=== PATIENT | female | born 1950 | race Caucasian/White ===

== ENCOUNTER 2020-05-04 08:18 | Day surgery (SDC) | payer MEDICARE, SELFPAY ==
--- NOTE | 2020-05-03 14:19 | P.CONAN_ITS ---
Documented by User: Cassandra De La Torre 05/03/20 14:20 HPI - Anesthesia Eval Consult details Narrative: 69yo F for Upper Endoscopy and Colonoscopy [facility] Past Medical History Medical History Acid reflux Anxiety Depression Migraines Surgical History Surgical History H/O section H/O colonoscopy History of esophagogastroduodenoscopy (EGD) History of esophagogastroduodenoscopy (EGD) Social History Social History Smoking Status: Never smoker Use of substances other than those prescribed or required for medical reasons: No Have you been hit, kicked, punched, or otherwise hurt by someone within the past year? If so, by whom?: No Advance Directives: No Advance Directives Information Provided: No (unknown) Advance Directives on File: No Recently lost weight without trying: No Meds Allergies Allergy/AdvReac Type Severity Reaction Status Date / Time meperidine [From Demerol] Allergy Unknown unknown Verified 05/03/20 14:20 Home Medications Medication Instructions Recorded Confirmed Type Advil 05/04/20 History atenolol 1 tab PO DAILY 05/04/20 05/04/20 History lfwthxmdut-ucxtkqumorirz-smre tab PO 05/04/20 History escitalopram oxalate 1 tab PO DAILY 05/04/20 05/04/20 History Exam Exam Date and Time: May 03, 2020 1419 Assessment and Plan Assessment Anesthesia Assessment: Chart Reviewed Documented by User: Alpa Denson 05/04/20 09:17 [facility] Past Medical History Medical History Acid reflux Anxiety Depression Migraines Family History Family history of problems with anesthesia: No Surgical History Surgical History H/O section H/O colonoscopy History of esophagogastroduodenoscopy (EGD) History of esophagogastroduodenoscopy (EGD) History of Problems with Anesthesia: No Social History Social History Smoking Status: Never smoker Use of substances other than those prescribed or required for medical reasons: No Have you been hit, kicked, punched, or otherwise hurt by someone within the past year? If so, by whom?: No Advance Directives: No Advance Directives Information Provided: No (unknown) Advance Directives on File: No Recently lost weight without trying: No Meds Allergies Allergy/AdvReac Type Severity Reaction Status Date / Time meperidine [From Demerol] Allergy Unknown unknown Verified 05/03/20 14:20 Home Medications Medication Instructions Recorded Confirmed Type Advil 05/04/20 History atenolol 1 tab PO DAILY 05/04/20 05/04/20 History qaidjafaom-kmqcfjotnrbyx-qndf tab PO 05/04/20 History escitalopram oxalate 1 tab PO DAILY 05/04/20 05/04/20 History Exam Height,Weight and Vital Signs: Vital Signs Temp Pulse Resp BP Pulse Ox 05/04/20 08:34 97 F 82 18 150/76 H 97 Airway Mallampati Class: II TM Dist: >3cm Loose/Missing/Broken Teeth: No (Caps intact) Heart: RRR Lungs: CTAB Assessment and Plan Assessment Anesthesia Assessment: Anesthesia Plan Discussed and Chart Reviewed Final Anesthetic Review NPO: Yes ASA Class: II Final Preanesthetic Review: No Changes in Pt Med Stat, Meds/Allgs Chart Reviewed and Consent Obtained/Reviewed Patient Risk: Low Procedure Risk: Low Anesthetic Plan Anesthetic Plan: MAC: Disposition: Standard PACU
[2020-05-04 08:34] VITALS: BP 150/76; PULSE 82; RESP 18; TEMP 36.1; O2SAT 97; BMI 24.7
[2020-05-04] MEDS: Lactated Ringers 1,000 ML 100 ML IVCONT (08:43)
--- NOTE | 2020-05-04 10:04 | MHC.SHP ---
Pre-Procedural Eval Section A The patient is an INPATIENT: No Changes since office visit: No Cold of Flu in the past 2 weeks, No New Medical Problems, No Changes in Medication and No Patient answered all questions The History & Physical has been completed within 30 days and I have reviewed it.: Yes Section B Chief Complaint: reflux,barretts,screening Allergies: Allergies Allergy/AdvReac Type Severity Reaction Status Date / Time meperidine [From Demerol] Allergy Unknown unknown Verified 05/03/20 14:20 Plan Patient has been examined and remains a candidate for the planned procedure
[2020-05-04 10:42] VITALS: BP 121/62; PULSE 72; RESP 16; TEMP 36.3; O2SAT 99
--- NOTE | 2020-05-04 10:44 | PM.OP ---
Brief Operative Note Date of procedure: 05/04/20 Pre-op diagnosis: gerd screening Post-op diagnosis: same (gastritis) Procedure: egd, colonoscopy Surgeon: Danny Paris Anesthesia: MAC Estimated blood loss (mL): 4 Pathology: other (antral, egj, gastric polyp bxs) Condition: stable Disposition: PACU
[2020-05-04 10:57] VITALS: BP 117/86; PULSE 67; RESP 16; TEMP 36.3; O2SAT 99
--- NOTE | 2020-05-04 11:06 | OP_ITS ---
SURGEON: Danny Paris MD INDICATIONS: 1. Gastroesophageal reflux disease. 2. Colon cancer screening. PREOPERATIVE DIAGNOSIS: POSTOPERATIVE DIAGNOSIS: PROCEDURE PERFORMED: ESTIMATED BLOOD LOSS: COMPLICATIONS: ANESTHESIA: ASSISTANTS: SPECIMENS: PROCEDURES: 1. Upper endoscopy with biopsy. 2. Colonoscopy to the terminal ileum. MEDICATIONS: Monitored anesthesia care. DESCRIPTION OF PROCEDURE: History and physical performed. The risks and benefits of the procedure were explained to the patient. Informed consent was obtained. The patient was placed in the left lateral decubitus position. The Olympus video gastroscope was introduced into the esophagus, stomach, and duodenum. Examination was performed. The scope was removed. She tolerated the procedure well. She was repositioned for colonoscopy. A digital rectal exam was performed and was found to be normal. The Olympus pediatric video colonoscope was introduced into the rectum and advanced to the cecum without difficulty. The cecum was identified by transillumination, palpation, and identification of the ileocecal valve. Examination was performed. The scope was removed. She tolerated both procedures well and was taken to recovery in stable condition. FINDINGS: UPPER ENDOSCOPY: Esophagus: The esophagus was normal. Biopsies were obtained from the EG junction. Stomach: The stomach showed a single, less than 5 mm gastric polyp in the body, which had a benign appearance. This was biopsied. There was erythema in the antrum consistent with gastritis. Biopsies were obtained from the antrum to rule out H pylori. Duodenum: The bulb and second portion were normal. COLONOSCOPY: The terminal ileum was normal. The visualized colonic mucosa was within normal limits without evidence of masses or ulcers. The quality of prep was good. No polyps were identified. Retroflexed examination was normal. IMPRESSION: 1. Gastritis. 2. Normal colonoscopy. RECOMMENDATIONS: 1. Follow up the biopsy results. 2. Repeat colonoscopy is recommended in 5 years because of prior history of colon polyps. MD CLARY Zazueta/COLTON / [id number]
== END 2020-05-04 11:30 | disposition home or self-care (01) ==
PROVIDERS: PCP Internal Medicine; Visit Provider Internal Medicine Gastroenterology
PROC: (CPT 43239; principal; 2020-05-04 09:50)
DX: Z12.11 Encounter for screening for malignant neoplasm of colon (principal); Z86.010 Personal history of colon polyps; K21.9 Gastro-esophageal reflux disease without esophagitis; Z87.19 Personal history of other diseases of the digestive system; K29.70 Gastritis, unspecified, without bleeding; K31.7 Polyp of stomach and duodenum; F32.9 Major depressive disorder, single episode, unspecified; G43.909 Migraine, unspecified, not intractable, without status migrainosus; Z88.8 Allergy status to other drugs, medicaments and biological substances; Z79.899 Other long term (current) drug therapy; Z79.1 Long term (current) use of non-steroidal anti-inflammatories (NSAID)
CPT/HCPCS: 43239; G0105; 88305; 88342